=== PATIENT | female | born 1970 | race Caucasian/White ===

== ENCOUNTER → 2024-12-15 | Day surgery (SDC) | payer OTHER ==
[~2024-12-15] MED LIST: ACETAMINOPHEN 1000 MG/100 ML 0 ML IV ONE; ALBUTEROL0.63 MG/3 INH; BUPIVACAINE LIPOSOME/PF 266 MG/20 ML IJ ONE; FENTANYL CITRATE/PF 100MCG/2 ML INJ ONE; HYDROCODONE PO; LIDOCAINE HCL 2% LOCAL 20 ML VIAL ONE; MIDAZOLAM HCL 2 MG/2 ML VIAL ONE; ONDANSETRON HCL INJ 2MG/ML 2ML 2 MG/ML VIAL ONE; PHENYLEPHRINE HCL 1% 10 MG/ML VIAL ONE; PROPOFOL IV EMULSION 10 MG/ML 20 ML VIAL ONE; SEVOFLURANE INHAL SOLN 250 ML PEN BTL ONE
[2024-12-15] MEDS: LACTATED RINGER'S 1,000 ML ONE (09:19)
[2024-12-15 13:30] VITALS: BP 125/85; PULSE 55; RESP 15; O2SAT 95
== END | disposition home or self-care (01) ==
LOC: OR 08:28
PROVIDERS: ATTEND Specialist
DX: S52.561A Barton's fracture of right radius, initial encounter for closed fracture (principal); S63.502A Unspecified sprain of left wrist, initial encounter; J45.909 Unspecified asthma, uncomplicated; W01.198A Fall on same level from slipping, tripping and stumbling with subsequent striking against other object, initial encounter; Z01.810 Encounter for preprocedural cardiovascular examination; Z79.51 Long term (current) use of inhaled steroids
CPT/HCPCS: 25607; 93005; C1713 ×5; J0666; J0690; J2003; J2250; J2371; J2405; J2704; J3010; J7121; 76000